=== PATIENT | female | born 1980 | race Caucasian/White ===

== ENCOUNTER 2019-11-15 08:06 | Outpatient (CLI) | payer OTHER, SELFPAY ==
[2019-11-15 09:01] LABS: Basophils Absolute Auto 0.07 K/mm3 (0.00-0.10); Basophils Percent Auto 0.9 % (0.0-1.0); Eosinophils Absolute Auto 0.13 K/mm3 (0.02-0.50); Eosinophils Percent Auto 1.6 % (1.0-6.0); Hematocrit 42.1 % (35.0-49.0); Hemoglobin 14.2 g/dL (12.0-15.0); Immature Granulocyte Absolute 0.02 K/mm3 (0.00-0.00); Immature Granulocyte Percent A 0.3 % (0.0-0.0); Lymphocytes Absolute Auto 2.07 K/mm3 (1.10-4.50); Lymphocytes Percent Auto 26.2 % (18.0-42.0); Mean Corpuscular HGB Conc 33.7 g/dL (32.0-36.0); Mean Corpuscular Hemoglobin 31.7 pg (27.0-31.0); Mean Platelet Volume 10.1 fl (9.2-11.8); Monocytes Absolute Auto 0.53 K/mm3 (0.10-0.90); Monocytes Percent Auto 6.7 % (2.0-11.0); Neutrophils Absolute Auto 5.1 K/mm3 (1.7-7.2); Neutrophils Percent Auto 64.3 % (50.0-70.0); Platelet Count Result 232 K/mm3 (150-420); Red Blood Count 4.48 M/mm3 (4.20-5.40); Red Cell Distribution Width 12.4 % (11.6-14.4); White Blood Count 7.9 K/mm3 (4.8-10.8)
[2019-11-15 10:06] LABS: Alanine Aminotransferase 19 U/L (14-59); Albumin Level 4.1 g/dL (3.4-5.0); Alkaline Phosphatase 52 U/L (46-116); Anion Gap 12.9 mmol/L (7-16); Aspartate Amino Transferase 9 U/L (15-37); Bilirubin,Total 0.5 mg/dL (0.00-1.00); Blood Urea Nitrogen 26 mg/dL (7-18); Calcium 9.3 mg/dL (8.5-10.1); Carbon Dioxide 26 mmol/L (21-32); Chloride 109 mmol/L (98-108); Cholesterol 229 mg/dL (0-200); Estimated Glomerular Filt Rate 60; Free T4 Free Thyroxine 0.83 ng/dL (0.76-1.46); Glucose 104 mg/dL (70-99); HDL Direct 46 mg/dL (40-60); LDL Cholesterol Calculated 161 mg/dL (<130); Osmolality Calculated 300 mOsm/kg (285-295); Potassium 4.9 mmol/L (3.5-5.1); Sodium 143 mmol/L (136-145); Thyroid Stimulating Hormone 0.98 uIU/mL (0.36-3.74); Total Protein 6.6 g/dL (6.4-8.2); Triglycerides 111 mg/dL (0-150)
[2019-11-15 10:35] LABS: CRP < 0.2 mg/dL (0.0-0.9)
[2019-11-15 10:45] LABS: Add Urine Microscopic? YES; Appearance Urine Cloudy (Clear); Bilirubin Urine Negative (Negative); Blood Urine Negative (Negative); Color Urine Yellow (Yellow); Glucose Urine UA Negative (Negative); Ketones Urine Negative (Negative); Leukocyte Esterase Ur Trace LEU/UL (Negative); Nitrate Urine Negative (Negative); Protein Urine Negative (Negative); Urobilinogen Urine 0.2 mg/dL (0.2-1.0)
[2019-11-15 10:56] LABS: RBC Urine None seen /hpf (0-2); Squamous Epithelial Cell Urine Many /hpf (Few); WBC Urine 0-3 /hpf (0-3)
[2019-11-15 10:57] LABS: Bacteria Urine Trace /hpf
== END 2019-11-15 08:07 | disposition home or self-care (01) ==
LOC: CHSLAB 08:09
PROVIDERS: PCP Internal Medicine; Visit Provider Nurse Practitioner Family
DX: Z00.00 Encounter for general adult medical examination without abnormal findings (principal); M54.5 Low back pain
CPT/HCPCS: 36415; 80053; 80061; 81001; 84439; 84443; 85025; 86140

== ENCOUNTER 2019-12-12 08:06 | Emergency (ER) | payer OTHER, SELFPAY ==
[2019-12-12 08:19] VITALS: BP 131/84; PULSE 98; RESP 16; TEMP 36.7; O2SAT 100
--- NOTE | 2019-12-12 08:23 | ED.BACK ---
HPI - Back Pain/Injury General Chief Complaint: Back Pain/Injury Stated Complaint: severe back pain Time Seen by Provider: 12/12/19 08:23 Source: patient History of Present Illness MD elicited complaint: back pain Pertinent past history: prior back pain Timing: constant Severity: severe Similar Symptoms Previously: Yes Quality: dull and aching Related Data Home Medications Medication Instructions Recorded Confirmed cyclobenzaprine 10 mg PO TID 12/12/19 12/12/19 duloxetine 20 mg PO DAILY 12/12/19 12/12/19 Allergies Allergy/AdvReac Type Severity Reaction Status Date / Time No Known Allergies Allergy Verified 12/12/19 08:36 Review of Systems Constitutional: Constitutional: Reports no additional constitutional complaints Cardiovascular: Cardiovascular: Reports no additional cardiovascular complaints Respiratory: Respiratory: Reports no additional respiratory complaints Gastrointestinal: Gastrointestinal: Reports no additional gastrointestinal complaints Musculoskeletal: Musculoskeletal: Reports as per HPI Neurologic: Reports system reviewed and no additional complaints, except as documented Psychiatric: Psychiatric: Reports no additional psychiatric complaints [facility] Past Medical History Medical History (Updated 12/12/19 @ 08:38 by Pedro Martin MD) Chronic back pain Surgical History Surgical History (Updated 12/12/19 @ 08:39 by Pedro Martin MD) History of surgical removal of ganglion cyst History of tonsillectomy Social History Social History (Updated 12/12/19 @ 08:31 by Pedro Martin MD) Smoking status: Current every day smoker Alcohol intake: never Substance use: never Exam Const: General: no acute distress Nutritional Appearance: well nourished Orientation/consciousness: patient oriented x3 HENMT: Head: normal to inspection Ears: external ears normal General nose exam: Normal external nose present Mouth: Yes lip normal Eyes: Conjunctivae: conjunctivae normal Pupils: Equal, round and reactive pupils present EOM: EOMs intact bilaterally Neck: Neck: normal visual inspection Resp: Effort & Inspection: normal respiratory effort Auscultation: clear to auscultation bilaterally Cardio: Rate: regular rate Rhythm: regular rhythm Heart sounds: no murmurs GI: Auscultation: normal bowel sounds Back/Spine/Pelvis: Cervical Spine: cervical ROM normal Thoracic/Lumbar Spine: straight leg raise negative bilaterally, pain with thoraco-lumbar ROM, paraspinal muscle tenderness bilaterally in the lower lumbar, thoraco-lumbar ROM limited with forward flexion, with lateral flexion to the right and with lateral flexion to the left, thoraco-lumbar spasm bilaterally in the lower lumbar and lumbar spinal tenderness at L3 and at L4 Skin: General skin exam: normal color Rashes: no rashes Neuro: General: patient oriented x3, moves all extremities, no meningeal signs and no focal motor deficits Speech: normal speech Extrem: General: normal to inspection Psych: Appearance: grossly normal Mental Status: mental status grossly normal Affect: normal affect Attitude: cooperative Thought content: Yes Normal thought content present Course Course Emergency Course: Patient given shot of Toradol 60 mg, Norflex 60 mg both IM. Patient discharged home to follow-up with pain specialist. Vital Signs Vital signs: Vital Signs Temperature 36.7 C 12/12/19 08:19 Pulse Rate 98 12/12/19 08:19 Respiratory Rate 16 12/12/19 08:19 Blood Pressure 131/84 12/12/19 08:19 Pulse Oximetry 100 12/12/19 08:19 Temperature 36.7 C 12/12/19 08:19 Pulse Rate 98 12/12/19 08:19 Respiratory Rate 16 12/12/19 08:19 Blood Pressure 131/84 12/12/19 08:19 Pulse Oximetry 100 12/12/19 08:19 Discharge Plan Discharge Clinical Impression: Chronic back pain Qualifiers: Back pain location: low back pain Back pain laterality: bilateral Sciatica presence: without sciatica Qualified Cod
[2019-12-12] MEDS: ORPHENADRINE CITRATE 30 MG/ML 2 ML VIAL 60 MG IM (08:42)
[2019-12-12] MEDS: KETOROLAC (*BKC) 60 MG/2 ML VIAL IM (08:43)
== END 2019-12-12 09:07 | disposition home or self-care (01) ==
PROVIDERS: Emergency Provider Emergency Medicine; PCP Internal Medicine
DX: M54.5 Low back pain (principal)
CPT/HCPCS: 96372; 99283; 99284; J1885; J2360

== ENCOUNTER 2020-05-21 08:57 | Outpatient (CLI) | payer OTHER, SELFPAY ==
--- NOTE | ~2020-05-21 | US_ITS ---
EXAMINATION: US arterial ankle brachial ind DATE: 05/21/2020 09:33 INDICATION: Peripheral arterial occlusive disease TECHNIQUE: Segmental pressures and plethysmographic and Doppler waveforms of the brachial and lower e xtremity arteries were obtained. COMPARISON: None. FINDINGS: Right and left brachial artery pressures of 109 mm Hg and 114 mm Hg, respectively, are concordant (no rmal difference <= 30 mmHg). The right ankle-brachial index (CARYN) is 1.12 (normal >= 0.9-1.0). The right great toe-brachial index (TBI) is 0.89 (normal >= 0.65). There are brisk systolic upstrokes at both the right posterior tibial and dorsalis pedis arteries. The left CARYN is 1.09. The left TBI is 0.97. There are brisk systolic upstrokes at both the left poste rior tibial and dorsalis pedis arteries. IMPRESSION: 1. No significant arterial occlusive disease to either lower limb with normal bilateral ABIs and TBIs . Reviewed, dictated and finalized at location A. IMPRESSION: 1. No significant arterial occlusive disease to either lower limb with normal b ilateral ABIs and TBIs.
== END 2020-05-21 08:58 | disposition home or self-care (01) ==
LOC: CHSIMG 08:58
PROVIDERS: PCP Internal Medicine; Visit Provider Internal Medicine
DX: I73.9 Peripheral vascular disease, unspecified (principal)
CPT/HCPCS: 93922